=== PATIENT | female | born 1990 | race Caucasian/White ===

== ENCOUNTER 2020-01-03 08:58 | Emergency (ER) | payer OTHER ==
[~2020-01-03] VITALS: Ht 167.6 cm; Wt 61.2 kg
--- NOTE | 2020-01-03 08:58 | NUR ---
PT BIBRA 89 FROM HOME C/O BIZARRE BEHAVIOR. PT IS AAOX2, NOT IN RESPIRATORY DISTRESS, V/S STABLE, KEPT RESTED AND COMFORTABLE. WILL CONTINUE TO MONITOR.
--- NOTE | 2020-01-03 09:03 | NUR ---
PT SEEN AND EXAMINED BY .
--- NOTE | 2020-01-03 10:00 | NUR ---
PT REFUSED LABORATORY WORK UP. AWARE.
--- NOTE | 2020-01-03 10:10 | NUR ---
PT STATED SHE IS NOT SUICIDAL AND DOESNT WANT TO STAY. MD AWARE.
--- NOTE | 2020-01-03 10:13 | NUR ---
Patient discharged to home in stable condition. Written and verbal after care instructions given. Patient verbalizes understanding of instruction.
[2020-01-03 10:15] VITALS: BP 131/77
== END 2020-01-03 10:16 | disposition home or self-care (01) ==
LOC: ER 09:01
DX: Z02.89 Encounter for other administrative examinations (principal); R46.1 Bizarre personal appearance